=== PATIENT | male | born 1980 | race Caucasian/White ===

== ENCOUNTER 2019-10-15 14:52 | Emergency (ER) | payer BC ==
[~2019-10-15] VITALS: Ht 180.3 cm; Wt 104.3 kg
[2019-10-15 15:05] VITALS: Ht 180.3 cm; Wt 104.3 kg
[2019-10-15 15:37] LABS: BASOPHIL % 0.1 % (0-2); PLATELET COUNT 303 x10^3mcL (130-400); RED CELL DISTRIBUTION WIDTH 12.4 % (11.5-14.5)
[2019-10-15 15:56] LABS: CALCIUM 9.4 mg/dL (8.5-10.1); CARBON DIOXIDE 22.9 mmol/L (21-32); CREATININE SERUM 1.6 mg/dL (0.7-1.3); POTASSIUM SERUM 4.3 mmol/L (3.5-5.1)
[2019-10-15 16:00] LABS: UA SPECIFIC GRAVITY >=1.030 (1.005-1.035); microscopic required? YES; urine erythrocyte 2+ (NEGATIVE)
[2019-10-15 18:15] VITALS: BP 121/79
== END 2019-10-15 18:15 | disposition home or self-care (01) ==
LOC: ED 14:52
PROVIDERS: Emergency Medicine
DX: N20.0 Calculus of kidney (principal); R31.9 Hematuria, unspecified; Z87.442 Personal history of urinary calculi
CPT/HCPCS: J1885; J2270